=== PATIENT | female | born 1995 | race Caucasian/White ===

== ENCOUNTER 2018-01-16 18:42 | Emergency (ER) | payer BC ==
[~2018-01-16] VITALS: Ht 180.3 cm; Wt 71.8 kg
[2018-01-16 20:29] VITALS: BP 155/69
== END 2018-01-16 20:28 | disposition home or self-care (01) ==
LOC: EME 18:42
PROC: 3E0234Z Introduction of Serum, Toxoid and Vaccine into Muscle, Percutaneous Approach (ICD-10-PCS; principal; 2018-01-16)
DX: S61.311A Laceration without foreign body of left index finger with damage to nail, initial encounter (principal); W26.0XXA Contact with knife, initial encounter; Y93.G1 Activity, food preparation and clean up; Z23 Encounter for immunization; Z88.0 Allergy status to penicillin
CPT/HCPCS: 99281; 99284